=== PATIENT | female | born 1955 | race Caucasian/White ===

== ENCOUNTER 2020-08-18 14:04 | Emergency (ER) | payer BC, MEDICARE ==
[~2020-08-18] VITALS: Ht 157.5 cm; Wt 90.0 kg
[2020-08-18] MEDS ORDERED: KETOROLAC 30MG/ML VIAL IV STA (14:40)
[2020-08-18] MEDS ORDERED: SODIUM CHLORIDE 0.9% 1,000 ML IV ONE (14:45)
[2020-08-18 15:14] LABS: BASOPHILS % 0.3 % (0.0-2.0); EOSINOPHILS % 0.2 % (0.0-5.0); HEMOGLOBIN. 13.2 g/dL (12.0-16.0); LYMPHOCYTES % 12.1 % (20.0-50.0); MEAN CORPUSCULAR HEMOGLOBIN 28.9 pg (28.0-32.0); MEAN CORPUSCULAR VOLUME 85.1 fL (81.0-99.0); MEAN PLATELET VOLUME 8.4 fl (7.4-10.4); MONOCYTES % 5.8 % (2.0-8.0); NEUTROPHILS % 81.6 % (40.0-76.0); PLATELET 294 x1000/uL (130-400); RED BLOOD CELL COUNT 4.58 mill/uL (4.2-5.4); RED CELL DISTRIBUTION WIDTH 14.6 % (11.6-14.6)
[2020-08-18 15:18] LABS: CHLORIDE 102 mEq/L (98-107)
[2020-08-18 16:14] LABS: CLARITY URINE CLEAR (CLEAR); COLOR URINE YELLOW (YELLOW); KETONES URINE NEGATIVE (NEGATIVE); LEUKOCYTE ESTERASE URINE NEGATIVE (NEGATIVE); NITRITE URINE NEGATIVE (NEGATIVE); OCCULT BLOOD URINE NEGATIVE (NEGATIVE); PROTEIN URINE NEGATIVE (NEGATIVE); SPECIFIC GRAVITY URINE 1.006 (1.005-1.030); UROBILINOGEN URINE 0.2 E.U./dL (0.2-1.0)
[2020-08-18] MEDS ORDERED: METRONIDAZOLE 500MG TABLET PO ONE (17:15)
[2020-08-18] MEDS ORDERED: HYDROCODONE/ACETAMINOPHEN 5/325MG TABLET PO ONE (17:15)
[2020-08-18] MEDS ORDERED: LEVOFLOXACIN 250MG TABLET PO ONE (17:15)
[2020-08-18 18:31] VITALS: BP 107/61
== END 2020-08-18 18:44 | disposition home or self-care (01) ==
LOC: ER 14:04
DX: K57.32 Diverticulitis of large intestine without perforation or abscess without bleeding (principal); K80.20 Calculus of gallbladder without cholecystitis without obstruction; N81.4 Uterovaginal prolapse, unspecified; E11.9 Type 2 diabetes mellitus without complications; K21.9 Gastro-esophageal reflux disease without esophagitis; I10 Essential (primary) hypertension; Z87.440 Personal history of urinary (tract) infections
CPT/HCPCS: 36415; 71045; 74176; 80053; 81003; 83690; 85025; 87086; 96361; 96374; 99285; J1885; J7030

== ENCOUNTER 2021-03-05 17:42 | Emergency (ER) | payer MEDICARE ==
[~2021-03-05] VITALS: Ht 157.5 cm; Wt 90.0 kg
[2021-03-05] MEDS ORDERED: KETOROLAC 60MG/2ML VIAL IM ONE (19:30)
[2021-03-05] MEDS ORDERED: ACETAMINOPHEN 325MG TABLET PO ONE (19:30)
[2021-03-05 19:52] VITALS: BP 153/78
== END 2021-03-05 21:08 | disposition home or self-care (01) ==
LOC: ER 18:43
DX: M79.18 Myalgia, other site (principal); E11.9 Type 2 diabetes mellitus without complications; K21.9 Gastro-esophageal reflux disease without esophagitis; I10 Essential (primary) hypertension; Z87.440 Personal history of urinary (tract) infections
CPT/HCPCS: 72170; 73590; 96372; 99284; J1885